=== PATIENT | female | born 1985 | race Caucasian/White ===

== ENCOUNTER → 2018-03-15 | Outpatient (CLI) | payer MEDICARE, SELFPAY ==
[~2018-03-15] MED LIST: AZIT250 PO; BUTASPCAF PO; CODACE30 PO; CODACEE120 PO; CODBUTACEC PO; CODE30 PO; Ciprodex Otic7.5 ML RIGHTEAR; DIPH50 PO; DULO30 PO; GABA800 PO; HYDACE5 PO; HYDCHL12.5; HYDR1TAB94 PO; IBUP200; IBUP800; KETO10 PO; LABE100 PO; LORA1 PO; Lisinopril2.5 MG; MEDR150I; METO25ER; Maxalt10 MG; NAPR500 PO; NAPR550 PO; Norco 5-325 Ta1 EACH PO; ONDA4 PO; ONDA4ODT; ONDA8ODT MM; PANT20; POTCHL10ER; PROM25 PO; PROM50S PR; PROP60 PO; RIZATRIPTAN10 MG PO; RXCODACESY PO; RXLORA1 PO; RXNAPNA550 PO; RXTRAM50 PO; SERT25 PO; SUMA25 PO; TRAM50 PO
[2018-03-15 18:44] LABS: Appearance, Urine Clear (Clear); Bilirubin, Urine Neg (Neg); Blood, Urine 1+ (Neg); Color, Urine Yellow (P-Yellow); Glucose Qualitative, Urine Neg (Neg); Ketones, Urine Neg (Neg); Leukocyte Esterase, Urine Neg (Neg); Nitrite, Urine Neg (Neg); Protein, Urine Neg (Neg); Specific Gravity, Urine 1.025 (1.003-1.022); Urobilinogen, Urine NORM (Normal)
[2018-03-15 18:51] LABS: Bacteria Mod /hpf; Mucus Light (0-Heavy); Squamous Epithelial Cells Few /hpf (Few); White Blood Cells, Urine 0-2 /hpf (0-5)
== END ==
LOC: LAB SHORT 16:45 → LAB 16:45
PROVIDERS: Internal Medicine Nephrology
DX: N39.0 Urinary tract infection, site not specified (principal)
CPT/HCPCS: 81001; 87086

== ENCOUNTER 2019-03-14 05:25 | Emergency (ER) | payer MEDICARE ==
[~2019-03-14] VITALS: Ht 160 cm; Wt 81.7 kg
[~2019-03-14 05:25] MED LIST changes: -HYDCHL12.5; +HYDCHL12.5 PO; -METO25ER; +METO25ER PO; -POTCHL10ER; +POTCHL10ER PO
[2019-03-14] MEDS ORDERED: CYMBALTA (05:39)
[2019-03-14] MEDS ORDERED: CANNABIS (05:40)
[2019-03-14 05:49] LABS: Source, Urine Clean Catch
[2019-03-14 05:51] LABS: Bilirubin, Urine Neg (Neg); Blood, Urine 2+ (Neg); Glucose Qualitative, Urine Neg (Neg); Ketones, Urine Neg (Neg); Leukocyte Esterase, Urine 2+ (Neg); Nitrite, Urine Neg (Neg); Protein, Urine Neg (Neg); Urobilinogen, Urine NORM (Normal)
[2019-03-14 05:53] LABS: Appearance, Urine Hazy (Clear); Color, Urine Yellow (P-Yellow)
[2019-03-14 05:57] LABS: Bacteria Many /hpf; Red Blood Cells, Urine 0-2 /hpf (0-2); Squamous Epithelial Cells Few /hpf (Few)
[2019-03-14] MEDS ORDERED: CEPH500 PO (06:21)
== END 2019-03-14 06:33 | disposition home or self-care (01) ==
LOC: ER 05:25
PROVIDERS: Emergency Medicine
DX: N39.0 Urinary tract infection, site not specified (principal); I10 Essential (primary) hypertension; G43.909 Migraine, unspecified, not intractable, without status migrainosus; Z79.899 Other long term (current) drug therapy
CPT/HCPCS: 81001; 81025; 87086; 99283; A9270

== ENCOUNTER 2020-02-11 04:17 | Emergency (ER) | payer MEDICARE ==
[~2020-02-11] VITALS: Ht 160 cm; Wt 76.2 kg
[~2020-02-11 04:17] MED LIST changes: +CANNABIS; +CEPH500 PO; +CYMBALTA
[2020-02-11 04:55] LABS: BASOPHILS ABSOLUTE AUTO 0.07 K/mm3 (0.00-0.23); BASOPHILS PERCENT AUTO 1 % (0-2); EOSINOPHILS ABSOLUTE AUTO 0.22 K/mm3 (0.00-0.68); EOSINOPHILS PERCENT AUTO 2 % (0-6); Hematocrit 48.5 % (33.0-51.0); Hemoglobin 16.9 g/dL (11.5-16.0); IMMATURE GRAN ABSOLUTE AUTO 0.03 K/mm3 (0.00-0.10); IMMATURE GRAN PERCENT AUTO 0 % (0-1); LYMPHOCYTES ABSOLUTE AUTO 3.39 K/mm3 (0.84-5.20); LYMPHOCYTES PERCENT AUTO 28 % (21-46); MONOCYTES ABSOLUTE AUTO 0.81 K/mm3 (0.16-1.47); MONOCYTES PERCENT AUTO 7 % (4-13); Mean Corpuscular HGB 31.6 pg (26.0-34.0); Mean Corpuscular HGB Conc 34.8 g/dL (31.5-36.5); Mean Corpuscular Volume 91 fL (80-100); Mean Platelet Volume 10.2 fL (9.1-12.4); NEUTROPHILS ABSOLUTE AUTO 7.67 K/mm3 (1.96-9.15); NEUTROPHILS PERCENT AUTO 63 % (41-73); Platelet Count 373 K/mm3 (150-400); RDW Coefficient Variation 12.3 % (11.7-14.2); RDW Standard Deviation 40.3 fL (35.1-46.3); Red Blood Cell Count 5.35 M/mm3 (3.80-5.20); White Blood Cell Count 12.19 K/mm3 (4.00-11.30)
[2020-02-11 05:35] LABS: Alanine Aminotransfer (ALT/SGP 38 U/L (12-78); Albumin, Blood 4.6 g/dL (3.4-5.0); Albumin/Globulin Ratio 1.1 (0.8-1.8); Alk Phos 65 U/L (50-136); Anion Gap 8 mmol/L (6-16); Aspartate Aminotrans (AST/SGOT 12 U/L (12-37); Bilirubin, Total 0.6 mg/dL (0.1-1.0); Blood Urea Nitrogen 11 mg/dL (8-24); Bun/Creatinine Ratio 13.3 (12.0-20.0); CO2, Blood 27 mmol/L (21-32); Calcium, Blood 9.7 mg/dL (8.5-10.1); Chloride, Blood 101 mmol/L (98-108); Creatinine, Blood 0.83 mg/dL (0.40-1.00); Globulin, Blood 4.2 g/dL (2.2-4.0); Glomerular Filtration Rate >60 (60-); Glucose, Blood 106 mg/dL (70-99); Sodium, Blood 136 mmol/L (136-145); Total Protein, Blood 8.8 g/dL (6.4-8.2)
[2020-02-11 06:18] LABS: Source, Urine Urostomy Bag
[2020-02-11] MEDS ORDERED: DOXY100 PO (06:20)
[2020-02-11 06:32] LABS: Appearance, Urine Hazy (Clear); Blood, Urine 5+ (Neg); Color, Urine Amber (P-Yellow); Glucose Qualitative, Urine Neg (Neg); Ketones, Urine 1+ (Neg); Leukocyte Esterase, Urine 1+ (Neg); Nitrite, Urine Neg (Neg); Protein, Urine 3+ (Neg); Specific Gravity, Urine 1.025 (1.003-1.022); Urobilinogen, Urine 1+ (Normal)
[2020-02-11 06:39] LABS: Bilirubin, Urine 1+ (Neg)
[2020-02-11 06:43] LABS: Bacteria Many /hpf; Squamous Epithelial Cells Mod /hpf (Few)
[2020-02-11 06:44] LABS: Red Blood Cells, Urine 25-50 /hpf (0-2)
[2020-02-11 06:47] LABS: Amorphous Mod (0-Heavy)
[2020-02-11 06:48] LABS: Mucus Light (0-Heavy)
[2020-02-11] MEDS ORDERED: ONDA4ODT MM (07:29)
== END 2020-02-11 08:31 | disposition home or self-care (01) ==
LOC: ER 04:17
PROVIDERS: Emergency Medicine
DX: O02.1 Missed abortion (principal); Z88.5 Allergy status to narcotic agent; Z88.8 Allergy status to other drugs, medicaments and biological substances; Z79.899 Other long term (current) drug therapy; O99.411 Diseases of the circulatory system complicating pregnancy, first trimester; I12.9 Hypertensive chronic kidney disease with stage 1 through stage 4 chronic kidney disease, or unspecified chronic kidney disease; N18.9 Chronic kidney disease, unspecified; Z3A.09 9 weeks gestation of pregnancy
CPT/HCPCS: 36415; 76830; 76856; 80053; 81001; 83605; 85025; 87040; 96365; 96366; 96367; 96375; 99284-25; J2405